=== PATIENT | female | born 1930 | race Caucasian/White ===

== ENCOUNTER → 2017-02-25 | Outpatient (CLI) | payer OTHER, MEDICARE ==
[~2017-02-25] MED LIST: CALCIUM 500 +1 EAC5 PO; CENTRUM SILVER1 EAC4 PO; DIOVAN160 MG PO; FISH OIL 1,001000 M2 PO
== END ==
LOC: CAT 11:16
DX: J84.10 Pulmonary fibrosis, unspecified (principal)

== ENCOUNTER → 2017-06-05 | Outpatient (CLI) | payer OTHER, MEDICARE ==
[~2017-06-05] MED LIST changes: +ASPIRIN81 M2 PO; +ATIVAN0.5 MG PO; +CEFUROXIME500 MG PO; +ELIQUIS5 MG PO; +FLONASE 0.05%50 MCG NASAL; +FOLBIC RF TABL1 EACH PO; +FOLIC ACID1 MG PO; +METHOTREXATE 22.5 MG PO; +PEPCID20 MG PO; +PREDNISONE 20 M20 MG PO
== END ==
LOC: RAD 12:25
DX: J84.10 Pulmonary fibrosis, unspecified (principal)

== ENCOUNTER 2017-06-08 11:59 | Inpatient (IN) | payer OTHER, MEDICARE ==
[~2017-06-08] VITALS: Ht 162.6 cm; Wt 57.8 kg
--- NOTE | ~2017-06-08 | HC ---
[facility] [place] [address] CONSULTATION Name: SRIRAM GRAY Room #: 440-P [facility] IN M.R.#: [id number] Admission: 06/08/17 Attend Phys: Ralph Padilla MD Discharge: 06/12/17 Date of : [birth year] Report #: [id number] THIS REPORT FOR: //name// CC: Deepthi Padilla DATE OF SERVICE: 06/11/2017 HISTORY OF PRESENT ILLNESS: The patient is an 86-year-old white female with history of pulmonary fibrosis, chronic O2 usage, admitted with increased shortness of breath. She was noted to have acute on chronic respiratory failure. She has been diagnosed with an acute pulmonary embolism and has a DVT, left greater saphenous vein. She has now undergone an IVC filter placed. Pulmonary medicine is closely involved as well as internal medicine. She has had a functional decline with her current condition. We are seeing her in rehabilitation medicine consultation. PAST MEDICAL HISTORY: Includes hysterectomy, hypertension, cholecystectomy, cataracts, rheumatoid arthritis for which she has been on methotrexate and home O2 at night and when shopping at 2 liters. ALLERGIES: No known drug allergies. MEDICATIONS: Please see the full medication listing. HABITS: No history of tobacco or alcohol abuse. SOCIAL HISTORY: Lives in a condominium, 4 steps alone, used oxygen as noted above. Has an involved daughter. Did not utilize gait aids premorbidly. REVIEW OF SYSTEMS: Shortness of breath with increased activity. Some chronic arthritic complaints with her rheumatoid arthritis. No current distal extremity pain complaints. No current chest pain or abdominal discomfort. She has had some unintended weight loss, which was noted upon her examination. PHYSICAL EXAMINATION: GENERAL: She is a pleasant, thin 86-year-old white female, in no obvious distress. VITAL SIGNS: Last recorded temperature 97.4, pulse 60, respirations 19, blood pressure 164/74. NEUROLOGIC: The patient is alert, pleasant. Nasal prong O2 is in place. Facies are symmetric. Functional range of motion of both upper extremities, strength grade 4- to 4/5. DTRs are trace to 1. Lower extremities, no focal calf swelling, functional range of motion with strength grade 4 to 4-/5. DTRs are trace to 1. 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 ASSESSMENT: An 83-year-old white female with the following problems: 1. Pulmonary rehabilitation. 2. Exacerbation of pulmonary fibrosis. 3. Acute on chronic respiratory failure. 4. Acute pulmonary embolism with DVT, left greater saphenous vein, now status post IVC filter. 5. History of chronic O2 usage. 6. Rheumatoid arthritis for which she has been on methotrexate. 7. Progressive weight loss. PLAN: We are assessing her for a possible short acute in-hospital inpatient rehabilitation stay. We will be glad to follow along with you regarding her rehab therapy needs. <ELECTRONICALLY SIGNED> By: Richard Marie MD 06/23/17 1030 1318 49 Richard Marie MD /PMT
--- NOTE | ~2017-06-08 | HC ---
[facility] [place] [address] CONSULTATION Name: SRIRAM GRAY Room #: 440-P [facility] IN M.R.#: [id number] Admission: 06/08/17 Attend Phys: Ralph Padilla MD Discharge: 06/12/17 Date of : [birth year] Report #: [id number] THIS REPORT FOR: //name// CC: Deepthi Padilla DATE OF SERVICE: 06/08/2017 REASON FOR CONSULTATION: Progressive dyspnea. IMPRESSION: 1. Exacerbation of pulmonary fibrosis. 2. Fatigue. 3. Possible sinusitis. 4. Rheumatoid arthritis, progressive weight loss. PLAN: Corticosteroids antibiotics, aerosol therapy, DVT and ulcer prophylaxis per primary. We will monitor oxygen level, PT and OT to see. HISTORY OF PRESENT ILLNESS: An 86-year-old female who relates over the last 3 weeks felt worsening increasing shortness of breath. No definite chest pain, but requiring oxygen. Worsening nasal congestion at night and sweats at night. No sputum production. She has not recently been on antibiotics. Recent chest x-ray showed no acute change. PAST MEDICAL HISTORY AND SURGICAL HISTORY: Include hysterectomy, cholecystectomy. HOME MEDICATIONS: Include valsartan, calcium, fish oil, multivitamin. ALLERGIES: No known. SOCIAL HISTORY: Negative for current tobacco or ETOH, drugs of abuse. REVIEW OF SYSTEMS: Positive for sinus problems, nasal congestion, cough. No sputum production. No chest pain or palpitations. Positive dyspnea. No nausea or vomiting. No dysuria. PHYSICAL EXAMINATION: VITAL SIGNS: Temp 97.8, pulse 78, respirations 14, BP 152/70. EYES: Negative icterus. NECK: Negative JVD. Trachea midline. LUNGS: Showed crackles at bases. HEART: Regular. Sinus is nontender. EXTREMITIES: Showed no cyanosis or edema. [facility] [address] [place] [address] CONSULTATION Name: SRIRAM GRAY Room #: 440-P [facility] IN ..#: [id number] Admission: 06/08/17 Attend Phys: Ralph Padilla MD Discharge: 06/12/17 Date of : [birth year] Report #: [id number] NEUROLOGIC: Alert and oriented. Daughter at bedside. LABORATORY DATA: Chest x-ray on Thursday showed no acute change. Honeycombing diffuse infiltrate on chest x-ray today, similar to prior. White count 8.8, hemoglobin 12.1, platelets 314. BUN 16, creatinine 1. Albumin 3.1. Lactate 2.4. UA showed trace ketones and blood. Influenza negative. BNP 537. We will follow closely with you. <ELECTRONICALLY SIGNED> By: Deepthi Maynard MD 06/25/17 1054 1601 25 Deepthi Maynard MD /nt
--- NOTE | ~2017-06-08 | CNG ---
[facility] [place] [address] CYTO-NONGYN REPORT PROCEDURE Name: SHERMANMARYURI ANTHONY Room #: 440-P ADM IN M.R.#: [id number] Admission: 06/08/17 Date of : [birth year] Discharge: Report #: [id number] Path Case #: [id number] CYTOPATHOLOGY REPORT COLLECTION DATE: 06/08/2017 RECEIVED DATE: 06/09/2017 SUBMITTING PHYS: Dr. Deepthi Maynard OTHER PHYS: Terrance Cruz Dr. CLINICAL HISTORY: Weakness, night sweats, SOB. SPECIMEN(S) RECEIVED: A.Sputum * * * * * * * * * * * * FINAL DIAGNOSIS: A. Sputum: - No malignant cells identified. - Alveolar macrophages, squamous cells, inflammation, and bacteria identified. PATHOLOGIST: Osiel Cabrera M.D. REPORT ELECTRONICALLY SIGNED BY: Osiel Cabrera M.D. DATE/TIME: 06/10/2017 15:06 * * * * * * * * * * * * GROSS PATHOLOGY: A. Sputum: The specimen is submitted unfixed, labeled "Maryuri Monsalve". Received by the Cytology Department is one mL of clear fluid. One ThinPrep slide was prepared. (clt 06.09.2017) HUMAN RESOURCES BENEFITS MANAGER(S): CLOVER Landers([facility]) INITIAL CPT CODE(S): A; 49576 Professional services performed by [facility] at [facility] [address], [place] [address] Technical services performed by [facility] at [address] [place] [address]., [address], [place] [address]. [facility] [address] [place] [address], [facility] [address] [place] [address] PHONE: [phone] [facility] [address] [place] [address] CYTO-NONGYN REPORT PROCEDURE Name: MARYURI MONSALVE Room #: 440-P ADM IN M.R.#: [id number] Admission: 06/08/17 Date of : [birth year] Discharge: Report #: [id number] Path Case #: [id number] DIRECTOR: Alex Rivera M.D. * * * END OF REPORT * * *
--- NOTE | ~2017-06-08 | EKG ---
[place] [address] [facility] [place] [address] ELECTROCARDIOGRAM REPORT Name: SRIRAM GRAY Room #: 440-P ADM IN M.R.#: [id number] Admission: 06/08/17 Attend Phys: Ralph Padilla MD Discharge: Date of : [birth year] Report #: [id number] THIS REPORT FOR: //name// [facility] ED Test Date: 2017-06-08 Test Time: 12:54:30 Pat Name: SRIRAM GRAY Department: Room: 440 Gender: F Refrigeration Installer: ravin : 1930 Requested By: Florence Valderrama Order Number: [id number] MD: Brody Hicks Measurements Intervals [place] Rate: 66 P: 1 TX: 176 QRS: -50 QRSD: 101 T: 2 QT: 413 QTc: 433 Interpretive Statements Sinus rhythm Left anterior fascicular block Abnormal R-wave progression, late transition Left ventricular hypertrophy No previous ECG available for comparison Electronically Signed On 06-09-2017 13:17:31 CDT by Brody Hicks [email or web address] <ELECTRONICALLY SIGNED> By: Brody Hicks MD, [facility] 06/09/17 1317 1254 1254 Brody Hicks MD, [facility] /EPI
--- NOTE | ~2017-06-08 | 2DMMODE ---
[facility] [address] [place] [address] 2 D/M-MODE ECHOCARDIOGRAM Name: SRIRAM GRAY Room #: 440-P ADM IN M.R.#: [id number] Admission: 06/08/17 Attend Phys: Ralph Padilla MD Discharge: Date of : [birth year] Date of Service: 06/10/17 1045 Report #: [id number] THIS REPORT FOR: //name// APPROVED REPORT Study performed: 06/10/2017 08:42:48 EXAM: Comprehensive 2D, Doppler, and color-flow Echocardiogram Patient Location: Bedside Room #: 440 Status: routine BSA: 1.57 HR: 86 bpm BP: 176/80 mmHg Other Information Study Quality: Adequate Indications Pulmonary Embolism Pulmonary Hypertension Dyspnea Hypertension/HDD 2D Dimensions RVDd: 33.03 mm LVEF(%): 64.34 (>50%) IVSd: 11.05 (7-11mm) LVOT Diam: 21.40 (18-24mm) LVDd: 47.83 mm PWd: 10.62 (7-11mm) Ascending Ao: 32.97 (22-36mm) LVDs: 31.03 (25-40mm) Aortic Root: 29.55 mm IVC: 18.00 mm Oglesby's LVEF: 64.34 % Volumes Left Atrial Volume (Systole) Single Plane 4CH: 77.08 mL Single Plane 2CH: 55.86 mL LA ESV Index: 49.00 mL/m2 Aortic Valve AoV Peak Jhonny.: 1.53 m/s AO Peak Gr.: 9.33 mmHg LVOT Max P.98 mmHg LVOT Max V: 1.22 m/s MURPHY Vmax: 2.88 cm2 AI Vmax: 4.61 m/s AI Lawrence: 2.66 m/s2 [facility] [place] [address] 2 D/M-MODE ECHOCARDIOGRAM Name: SRIRAM GRAY Room #: 440-P ADM IN M.R.#: [id number] Admission: 06/08/17 Attend Phys: Ralph Padilla MD Discharge: Date of : [birth year] Date of Service: 06/10/17 1045 Report #: [id number] AI PHT: 502.43 ms Mitral Valve E/A Ratio: 0.7 MV Decel. Time: 346.49 ms MV E Max Jhonny.: 0.80 m/s MV A Jhonny.: 1.19 m/s MV PHT: 100.48 ms IVRT: 124.57 ms Pulmonary Valve PV Peak Jhonny.: 1.08 m/s PV Peak Gr.: 4.70 mmHg Pulmonary Vein P Vein S: 0.81 m/s P Vein A: 0.29 m/s P Vein D: 0.70 m/s P Vein A Dur.: 106.1 msec P Vein S/D Ratio: 1.16 Tricuspid Valve TR Peak Jhonny.: 3.04 m/s TR Peak Gr.: 36.96 mmHg PA Pressure: 42.00 mmHg Left Ventricle The left ventricle is normal size. There is normal LV segmental wall motion. There is normal left ventricular wall thickness. The left ventricular systolic function is normal. The left ventricular ejection fraction is within the normal range. LVEF is 55-60%. Grade I - abnormal relaxation pattern. Right Ventricle The right ventricle is normal size. The right ventricular systolic function is normal. Atria Left atrium is dilated. Right atrium is dilated. Aortic Valve Aortic valve is calcified, trileaflet. Mild aortic regurgitation. There is no aortic valvular stenosis. Mitral Valve Mild-moderate mitral annular calcification Mild mitral regurgitation. No evidence of mitral valve stenosis. Tricuspid Valve [address] [address] 2 D/M-MODE ECHOCARDIOGRAM Name: SRIRAM GRAY GABRIELLE Room #: 440-P [facility] IN ..#: [id number] Admission: 06/08/17 Attend Phys: Ralph Padilla MD Discharge: Date of : [birth year] Date of Service: 06/10/17 1045 Report #: [id number] The tricuspid valve is normal in structure. There is mild tricuspid regurgitation. Estimated PAP 42 mmHg. Pulmonic Valve The pulmonary valve is normal in structure. There is no pulmonic valvular regurgitation. Great Vessels The aortic root is normal in size. IVC is normal in size and collapses >50% with inspiration. Pericardium There is no pericardial effusion. <Conclusion> The left ventricular systolic function is normal. There is normal LV segmental wall motion. LVEF is 55-60%. Grade I - abnormal relaxation pattern. Both atria are dilated. Aortic valve is calcified, trileaflet. Mild aortic regurgitation, no stenosis. Mild-moderate mitral annular calcification. Mild mitral regurgitation. There is mild tricuspid regurgitation. Estimated pulmonary artery pressure of 42 mmHg. There is no pericardial effusion. <ELECTRONICALLY SIGNED> By: Brody Hicks MD, FACC 06/10/17 1045 1045 1045 Brody Hicks MD, FACC /INF
[~2017-06-08 11:59] MED LIST changes: -ASPIRIN81 M2 PO; -ATIVAN0.5 MG PO; -CEFUROXIME500 MG PO; -ELIQUIS5 MG PO; -FLONASE 0.05%50 MCG NASAL; -FOLBIC RF TABL1 EACH PO; -FOLIC ACID1 MG PO; -METHOTREXATE 22.5 MG PO; -PEPCID20 MG PO; -PREDNISONE 20 M20 MG PO
[2017-06-08 12:10] VITALS: BP 152/70
[2017-06-08 13:32] LABS: ABSOLUTE NEUTROPHILS 6.4 thou/uL (1.4-8.2); BASOPHILS 0.6 % (0.0-2.0); EOSINOPHILS 0.5 % (0.0-3.0); HEMATOCRIT 36.6 % (37.0-47.0); HEMOGLOBIN 12.1 gm/dL (12.0-15.0); LYMPHOCYTES 18.6 % (24.0-44.0); MCH 28.5 pg (26.0-34.0); MCV 86.4 fL (80.0-100.0); MONOCYTES 7.8 % (1.0-8.0); PLATELET COUNT 314 thou/uL (150-400); POLYS 72.5 % (36.0-66.0); RBC 4.23 mil/uL (4.20-5.00); RDW 17.9 % (10.5-14.5); WBC 8.8 thou/uL (4.0-11.0)
[2017-06-08 13:35] LABS: ANION GAP 10 mmol/L (7-16); BUN 16 mg/dL (7-18); CALCIUM 9.8 mg/dL (8.5-10.1); CHLORIDE 101 mmol/L (98-107); CO2 27 mmol/L (21-32); GLUCOSE 104 mg/dL (74-106); POTASSIUM 3.9 mmol/L (3.5-5.1); SODIUM 138 mmol/L (136-145)
[2017-06-08 13:43] LABS: ALBUMIN 3.1 g/dL (3.4-5.0); SGOT 35 U/L (15-37); SGPT 21 U/L (30-65); TOTAL BILIRUBIN 0.3 mg/dL (<0.1-1.0); TOTAL PROTEIN 8.3 g/dL (6.4-8.2); TROPONIN-I < 0.04 ng/mL (<0.06)
[2017-06-08 14:05] LABS: URINE BILIRUBIN NEGATIVE (Negative); URINE BLOOD TRACE (Negative); URINE CLARITY CLEAR; URINE COLOR YELLOW; URINE GLUCOSE-RANDOM* NEGATIVE (Negative); URINE KETONES TRACE (Negative); URINE LEUKOCYTES NEGATIVE (Negative); URINE NITRITE NEGATIVE (Negative); URINE PROTEIN (DIPSTICK) NEGATIVE (Negative); URINE UROBILINOGEN 0.2 E.U./dl (0.2-1.0)
[2017-06-08] MEDS ORDERED: METHOTREXATE 22.5 MG PO (14:44)
[2017-06-08] MEDS ORDERED: ATIVAN0.5 MG PO (14:45)
[2017-06-08] MEDS ORDERED: FOLIC ACID1 MG PO (14:46)
[2017-06-08] MEDS ORDERED: ASPIRIN81 M2 PO (14:46)
[2017-06-08] MEDS ORDERED: FLONASE 0.05%50 MCG NASAL (14:47)
[2017-06-08] MEDS ORDERED: FOLBIC RF TABL1 EACH PO (14:47)
[2017-06-08 15:03] VITALS: BP 152/70
[2017-06-08 18:10] VITALS: BP 162/75
[2017-06-08 19:11] VITALS: BP 161/71
[2017-06-09 00:21] VITALS: BP 154/78
[2017-06-09 06:16] VITALS: BP 170/94
[2017-06-09 07:46] VITALS: BP 144/71
[2017-06-09 17:24] LABS: APTT 24.8 Seconds (24.5-32.8); INR 1.1; PROTIME 11.1 Seconds (9.3-11.4)
[2017-06-09 22:06] LABS: IgA 406 mg/dL (64-422); IgG 1210 mg/dL (700-1600); IgM 81 mg/dL (26-217)
[2017-06-09 22:28] VITALS: BP 151/67
[2017-06-10 04:24] VITALS: BP 176/80
[2017-06-10 08:00] VITALS: BP 159/81
[2017-06-10 15:55] VITALS: BP 152/79
[2017-06-10 19:31] VITALS: BP 145/78
[2017-06-11] VITALS (8 sets, daily range): BP systolic 144–172; BP diastolic 55–88
[2017-06-11 07:31] LABS: ALBUMIN 2.7 g/dL (3.4-5.0); CALCIUM 9.1 mg/dL (8.5-10.1); CREATININE 0.7 mg/dL (0.6-1.0); PHOSPHORUS 2.9 mg/dL (2.5-4.9); POTASSIUM 3.6 mmol/L (3.5-5.1)
[2017-06-11 09:14] LABS: ANTI-DNA SCREEN 1 IU/mL (0-9); ANTI-RNP 1.6 AI (0.0-0.9)
[2017-06-11 23:12] LABS: ADENOVIRUS Negative (Negative); INFLUENZA A Negative (Negative); INFLUENZA B Negative (Negative); METAPNEUMOVIRUS Negative (Negative); PARAINFLUENZA 1 Negative (Negative); PARAINFLUENZA 2 Negative (Negative); PARAINFLUENZA 3 Negative (Negative); RHINOVIRUS Negative (Negative); RSV A Positive (Negative); RSV B Negative (Negative)
[2017-06-12 00:54] VITALS: BP 175/83
[2017-06-12 03:44] VITALS: BP 175/101
[2017-06-12 04:39] VITALS: BP 178/80
[2017-06-12 05:31] LABS: HEMATOCRIT 35.1 % (37.0-47.0); HEMOGLOBIN 11.4 gm/dL (12.0-15.0); MCH 27.9 pg (26.0-34.0); MCHC 32.4 g/dL (28.0-37.0); RBC 4.08 mil/uL (4.20-5.00); RDW 17.6 % (10.5-14.5); WBC 9.2 thou/uL (4.0-11.0)
[2017-06-12 07:28] VITALS: BP 174/81
[2017-06-12] MEDS ORDERED: ELIQUIS5 MG PO (10:55)
[2017-06-12] MEDS ORDERED: CEFUROXIME500 MG PO (10:55)
[2017-06-12] MEDS ORDERED: PREDNISONE 20 M20 MG PO (10:56)
[2017-06-12] MEDS ORDERED: PEPCID20 MG PO (10:56)
== END 2017-06-12 15:20 | DRG 166 ==
LOC: ER 11:59 → 4S 14:24 → EROBS 14:24 → 4S 17:40
PROVIDERS: Hospitalist; Internal Medicine Pulmonary Disease; Physician Assistant
PROC: 06H03DZ Insertion of Intraluminal Device into Inferior Vena Cava, Percutaneous Approach (ICD-10-PCS; principal; 2017-06-11)
DX: I26.99 Other pulmonary embolism without acute cor pulmonale (principal); J96.20 Acute and chronic respiratory failure, unspecified whether with hypoxia or hypercapnia; I82.492 Acute embolism and thrombosis of other specified deep vein of left lower extremity; I10 Essential (primary) hypertension; Z66 Do not resuscitate; J84.10 Pulmonary fibrosis, unspecified; M06.9 Rheumatoid arthritis, unspecified; F41.9 Anxiety disorder, unspecified; Z90.49 Acquired absence of other specified parts of digestive tract; Z90.710 Acquired absence of both cervix and uterus; Z98.42 Cataract extraction status, left eye; Z79.899 Other long term (current) drug therapy; Z79.82 Long term (current) use of aspirin; Z98.41 Cataract extraction status, right eye
CPT/HCPCS: 10100

== ENCOUNTER → 2017-08-14 | Outpatient (CLI) | payer OTHER, MEDICARE ==
[~2017-08-14] MED LIST changes: +ASPIRIN81 M2 PO; +ATIVAN0.5 MG PO; +CEFUROXIME500 MG PO; +ELIQUIS5 MG PO; +FLONASE 0.05%50 MCG NASAL; +FOLBIC RF TABL1 EACH PO; +FOLIC ACID1 MG PO; +METHOTREXATE 22.5 MG PO; +PEPCID20 MG PO; +PREDNISONE 20 M20 MG PO
--- NOTE | ~2017-08-14 | 2DMMODE ---
[facility] [employer] [place] [address] 2 D/M-MODE ECHOCARDIOGRAM Name: SRIRAM GRAY Room #: [facility]#: [id number] Admission: 08/14/17 Attend Phys: Berhane Zapata Discharge: Date of : [birth year] Date of Service: 08/14/17 1226 Report #: [id number] THIS REPORT FOR: //name// APPROVED REPORT Study performed: 08/14/2017 11:26:38 EXAM: Limited 2D, Doppler, and color-flow Echocardiogram Patient Location: Out-Patient Status: routine BSA: 1.57 HR: 61 bpm BP: 173/77 mmHg Indications Limited follow up echo for dyspnea. Hx: Pulmonary fibrosis, PHTN, PE. (Complete echo done 05/2017) 2D Dimensions RVDd: 33.70 mm LVEF(%): 47.48 (>50%) IVSd: 9.27 (7-11mm) LVOT Diam: 21.18 (18-24mm) LVDd: 51.44 mm PWd: 8.35 (7-11mm) LVDs: 39.10 (25-40mm) Oglesby's LVEF: 47.48 % Aortic Valve AoV Peak Jhonny.: 1.42 m/s AO Peak Gr.: 8.09 mmHg LVOT Max P.20 mmHg LVOT Max V: 0.89 m/s MURPHY Vmax: 2.21 cm2 Tricuspid Valve TR Peak Jhonny.: 3.28 m/s RAP Estimate: 5.00 mmHg TR Peak Gr.: 43.08 mmHg PA Pressure: 48.00 mmHg Left Ventricle The left ventricle is normal size. Mild basal septal hypertrophy is present. Left ventricular systolic function is low normal. LVEF is 50%. Right Ventricle The right ventricle is normal size. The right ventricular systolic function is normal. [facility] [address] [place] [address] 2 D/M-MODE ECHOCARDIOGRAM Name: SRIRAM GRAY Room #: [facility]#: [id number] Admission: 08/14/17 Attend Phys: Berhane Zapata Discharge: Date of : [birth year] Date of Service: 08/14/17 1226 Report #: [id number] Atria Left atrium is dilated. The right atrium size is normal. Aortic Valve Aortic valve is calcified. Mild aortic regurgitation. There is no aortic valvular stenosis. Mitral Valve There is mitral annular calcification. Mild mitral regurgitation. Tricuspid Valve The tricuspid valve is normal in structure. Mild to moderate tricuspid regurgitation. Estimated PAP is 45-50mmHg. Great Vessels IVC is normal in size and collapses >50% with inspiration. Pericardium There is no pericardial effusion. <Conclusion> The left ventricle is normal size. LVEF is 50%. Left atrium is dilated. Aortic valve is calcified. Mild aortic regurgitation. There is no aortic valvular stenosis. There is mitral annular calcification. Mild mitral regurgitation. The tricuspid valve is normal in structure. Mild to moderate tricuspid regurgitation. Estimated PAP is 45-50mmHg. There is no pericardial effusion. <ELECTRONICALLY SIGNED> By: Alexis Casillas MD 08/14/17 1226 1226 122 Alexis Casillas MD /INF
== END ==
LOC: CV 07:47
DX: I08.3 Combined rheumatic disorders of mitral, aortic and tricuspid valves (principal); I51.7 Cardiomegaly; I70.8 Atherosclerosis of other arteries; I27.20 Pulmonary hypertension, unspecified

== ENCOUNTER → 2018-02-11 | Outpatient (CLI) | payer OTHER, MEDICARE | LOC: CAT 10:48 | DX: I77.810 Thoracic aortic ectasia (principal); I25.10 Atherosclerotic heart disease of native coronary artery without angina pectoris; J47.9 Bronchiectasis, uncomplicated; I51.7 Cardiomegaly; K44.9 Diaphragmatic hernia without obstruction or gangrene; M25.78 Osteophyte, vertebrae; J84.10 Pulmonary fibrosis, unspecified ==